=== PATIENT | female | born 1980 | race Caucasian/White ===

== ENCOUNTER 2016-05-10 15:47 | Emergency (ER) | payer SELFPAY ==
[~2016-05-10] VITALS: Ht 154.9 cm; Wt 45.0 kg
[2016-05-10 15:51] VITALS: BP 115/59; PULSE 69; RESP 16; TEMP 98.3
--- NOTE | 2016-05-10 16:19 | PD ---
HPI . Chief Complaint: Related Problem Time Seen by Provider: 16:10 Travel History International Travel<30 days: No Contact w/Intl Traveler<30days: No Traveled to known affect area: No History of Present Illness HPI Patient presents stating that she had 3 positive test at home this morning. She presents to us requesting confirmation. Her last normal menstrual period was March 17. He has been having symptoms of including fatigue, noticed menstrual cycle, "the munchies." History Past Medical Histgory LMP: 03/17/16 Data Data Last Documented VS Vital Signs Date Time Temp Pulse Resp B/P Pulse Ox O2 Delivery O2 Flow Rate FiO2 05/10/16 15:51 98.3 69 16 115/59 Room Air MDM Medical Screen Exam Complete: Yes Emergency Medical Condition: No Narrative Course Patient presented for confirmation of . She has abdominal tenderness. She reports that she has just moved to the area and has no resources. The shelter case manager will talk to her regarding resources. A medical screening exam was performed: At the time of evaluation the presenting medical condition was determined not to be of an emergent nature. Patient was given options for additional community resources from which to obtain care. The Patient Has Been advised to seek medical attention for their presenting complaint. The patient has been advised to return to the ER at any time if an emergent condition develops. Primary Impression: Encounter for medical screening examination Condition: Rufina Gamboa MD May 10, 2016 16:19
== END 2016-05-10 16:31 | disposition left against medical advice (07) ==
LOC: NEPB 15:47
DX: R10.819 Abdominal tenderness, unspecified site (principal); Z32.00 Encounter for pregnancy test, result unknown
CPT/HCPCS: 99281